=== PATIENT | male | born 1980 | race Hispanic/Latino ===

== ENCOUNTER 2023-01-12 05:43 | Emergency (ER) | payer SELFPAY ==
[2023-01-12 05:48] VITALS: BP 137/103
[2023-01-12 06:19] LABS: BASO% 0.7 % (0-3); EOS% 1.4 % (0-8); HEMATOCRIT 42.8 % (39.0-50.0); HEMOGLOBIN 14.1 g/dl (14.0-18.0); IMMATURE GRANULOCYTES 0.7 % (0.0-5.0); LYMPH% 29.1 % (15-41); MEAN CELL VOLUME 88.1 fL CALC (80.0-100.0); MEAN CORPUSCULAR HGB CONC 32.9 g/dL CAL (32.0-36.0); MONO% 6.3 % (2-13); NEUT# 4.34 thou/uL (1.82-7.42); NEUT% 61.8 % (42-76); RED BLOOD COUNT 4.86 mill/uL (4.70-6.10)
[2023-01-12 06:58] VITALS: BP 117/80
[2023-01-12 07:02] VITALS: BP 118/81
[2023-01-12 07:31] VITALS: BP 101/58
[2023-01-12 07:37] LABS: ALBUMIN 3.8 g/dL (3.2-5.0); ALKALINE PHOSPHATASE 51 u/l (38-126); AMYLASE 105 u/l (30-110); ANION GAP 11 (6-22 (CALC)); BILIRUBIN, TOTAL 0.7 mg/dL (0.2-1.3); BUN 14 mg/dL (9-20); BUN/CREATININE RATIO 14 (12-20 (CALC)); CARBON DIOXIDE 21 mmol/l (22-30); CHLORIDE 112 mmol/l (95-108); GFR FOR AFR.AMER. > 60 ML/MIN (>=60 (CALC)); GFR OTHER RACES > 60 ML/MIN (>=60 (CALC)); LIPASE 149 u/l (23-300); POTASSIUM 4.1 mmol/l (3.5-5.1); SGOT/AST 27 u/l (17-59); SODIUM 139 mmol/l (137-146); TOTAL PROTEIN 6.2 g/dL (6.3-8.2)
[2023-01-12 08:08] LABS: URINE BILIRUBIN - DIPSTICK NEGATIVE (NEGATIVE); URINE COLOR YELLOW; URINE GLUCOSE - DIPSTICK NEGATIVE (NEGATIVE); URINE KETONE 15 mg/dL (NEGATIVE)
[2023-01-12 08:09] LABS: URINE BLOOD DIPSTICK LARGE (NEGATIVE); URINE LEUK ESTERASE NEGATIVE (NEGATIVE); URINE NITRITE - DIPSTICK NEGATIVE (Negative); URINE PROTEIN - DIPSTICK NEGATIVE (NEG-TRACE); URINE UROBILINOGEN - DIPSTICK 0.2 E.U./dL (0.2)
[2023-01-12 08:15] LABS: URINE RBC 50-100 RBC/hpf (0-5); URINE WBC 0-2 WBC/hpf (0-5)
[2023-01-12] MEDS ORDERED: TAMSULOSIN0.4 MG PO (08:41)
[2023-01-12] MEDS ORDERED: ZOFRAN4 MG/TAB PO (08:41)
[2023-01-12] MEDS ORDERED: TORADOL PO (08:41)
[2023-01-12] MEDS ORDERED: HYDROCO/APAP1 TA9 PO (08:41)
[2023-01-12 08:52] VITALS: BP 101/58
== END 2023-01-12 09:03 | disposition home or self-care (01) | DRG 694 ==
LOC: ED 05:43
PROVIDERS: Emergency Medicine
DX: N20.1 Calculus of ureter (principal)
CPT/HCPCS: Q9967